=== PATIENT | male | born 1975 | race Caucasian/White ===

== ENCOUNTER 2024-01-15 07:09 | Emergency (ER) | payer MEDICAID, SELFPAY ==
--- NOTE | 2024-01-15 07:13 | ECG_ITS ---
Test Date: 2024-01-15 07:19:15 Measurements Intervals [place] Rate: 117 P: 62 NE: 138 QRS: 57 QRSD: 89 T: 36 QT: 333 QTc: 466 Interpretive Statements SINUS TACHYCARDIA INCOMPLETE RIGHT BUNDLE BRANCH BLOCK No previous ECG available for comparison Electronically Signed On 01-15-2024 12:10:09 CDT by Jose Díaz M.D.
[2024-01-15 07:14] VITALS: PULSE 126; RESP 26; TEMP 37.6; O2SAT 100
--- NOTE | 2024-01-15 07:30 | PC.NURSE ---
Patient refusing blood pressures and lab work.
--- NOTE | 2024-01-15 07:32 | ED.CHESTPAIN ---
HPI - Chest Pain General Chief Complaint: Chest Pain Stated Complaint: CHEST PAIN, AMS History of Present Illness HPI narrative: 48-year-old male presents emergency department for evaluation for chest pain. Patient was initially in police custody when he began complaining of chest pain and was transfer the emergency department by EMS. Upon arrival emergency department patient states he is not having chest pain but is concerned he is being poisoned. Patient denies any homicidal or suicidal knee. Patient is declining any labs. Related Data Allergies Allergy/AdvReac Type Severity Reaction Status Date / Time haloperidol [From Haldol] AdvReac Muscle Verified 01/15/24 07:29 Spasms ziprasidone [From Geodon] AdvReac Unknown Verified 01/15/24 07:29 Review of Systems Review of Systems: All systems reviewed & are unremarkable except as noted in HPI and below Exam Narrative: APPEARANCE: Agitated HEAD: normocephalic, atraumatic. EYES: PERRLA/EOMI, conjunctivae clear. NOSE: Normal no drainage EARS:TMS clear with good light reflex. THROAT: Pharynx clear, no exudate. NECK: Supple. No adenopathy, no masses. RESPIRATORY: Airway patent, respirations nonlabored. Clear to auscultation bilaterally, no rales, rhonchi, wheezing. CARDIOVASCULAR: Regular rate and rhythm without murmurs rubs or gallops. ABDOMINAL: Soft, nontender, nondistended, normal bowel sounds MUSCULOSKELETAL: Moves all extremities. Strength/ROM intact, No edema, No calf tenderness. NEURO: Alert. Cranial nerves II through XII intact. Grossly intact SKIN: Warm, dry. Normal Color Course Course Emergency Course: Patient was alert oriented, patient was not homicidal or suicidal, patient declined any medical workup and preferred to be discharged Vital Signs Vital signs: Vital Signs Temperature 99.7 F H 01/15/24 07:14 Pulse Rate 126 H 01/15/24 07:14 Respiratory Rate 26 H 01/15/24 07:14 Pulse Oximetry 100 01/15/24 07:14 Oxygen Delivery Room Air 01/15/24 07:14 Temperature 99.7 F H 01/15/24 07:14 Pulse Rate 126 H 01/15/24 07:14 Respiratory Rate 26 H 01/15/24 07:14 Pulse Oximetry 100 01/15/24 07:14 Oxygen Delivery Room Air 01/15/24 07:20 MDM - Chest Pain MDM Narrative Medical decision making narrative: 48-year-old male presents emergency department for evaluation for suspected poisoning. Patient has declined any medical workup prefers to be discharged home. Discharge Plan Discharge Clinical Impression: Chest pain, Poisoning Patient Disposition: Left Against Medical Advice Condition: Stable Follow-up/Referrals: UNKNOWN,DOCTOR [Primary Care Provider] -
--- NOTE | 2024-01-15 07:44 | PC.NURSE ---
Patient denying all medical tx, patient signed AMA form. Awaiting ride in lobby.
== END 2024-01-15 07:41 | disposition left against medical advice (07) ==
LOC: ANHED 07:36
PROVIDERS: Emergency Provider Emergency Medicine
DX: T50.904A Poisoning by unspecified drugs, medicaments and biological substances, undetermined, initial encounter (principal); R07.9 Chest pain, unspecified; I45.10 Unspecified right bundle-branch block; R00.0 Tachycardia, unspecified
CPT/HCPCS: 93005; 99283

== ENCOUNTER 2024-02-01 03:42 | Emergency (ER) | payer MEDICAID, SELFPAY ==
[2024-02-01 03:46] VITALS: BP 139/80; PULSE 112; RESP 16; TEMP 37.1; O2SAT 98
[2024-02-01 04:11] LABS: Basophils Percent Auto 0.3 % (0.2-1.2); Eosinophils Absolute Auto 0.1 K/mm3 (0-0.3); Eosinophils Percent Auto 0.8 % (0-4.4); Hematocrit 41.2 % (42.0-52.0); Immature Granulocyte Absolute 0.03 K/mm3 (0.00-0.031); Immature Granulocyte Percent A 0.5 % (0-0.5); Lymphocytes Absolute Auto 2.05 K/mm3 (0.9-3.2); Lymphocytes Percent Auto 32.2 % (18.3-44.2); Mean Corpuscular Hemoglobin 30.8 pg (26-34); Mean Corpuscular Volume 90.7 fl (80-100); Mean Platelet Volume 8.6 fl (7.4-10.4); Monocytes Absolute Auto 0.7 K/mm3 (0.1-0.6); Monocytes Percent Auto 11.5 % (2.6-8.5); Neutrophils Absolute Auto 3.5 K/mm3 (1.3-6.7); Neutrophils Percent Auto 54.7 % (45.5-73.1); Platelet Count Result 231 k/mm3 (150-375); Red Blood Count 4.54 M/mm3 (4.6-6.20); Red Cell Distribution Width 13.4 % (11.5-14.5); White Blood Count 6.4 K/mm3 (4.5-10.0)
[2024-02-01 04:22] LABS: Alanine Aminotransferase 17 U/L (6-50); Albumin Level 4.5 g/dL (3.5-5.1); Alkaline Phosphatase 72 U/L (38-126); Anion Gap 7 mmol/L (4-12); Aspartate Amino Transferase 32 U/L (17-59); Bilirubin,Total 0.4 mg/dL (0.2-1.3); Blood Urea Nitrogen 18 mg/dL (9-20); Calcium 8.4 mg/dL (8.4-10.2); Carbon Dioxide 30 mmol/L (22-30); Chloride 102 mmol/L (98-107); Estimated CRCL calculation 73 ml/min; Estimated Glomerular Filt Rate > 60; Glucose 120 mg/dL (65-110); Sodium 139 mmol/L (137-145)
[2024-02-01 04:24] LABS: Appearance Urine Clear (Clear); Bacteria Urine None Seen /hpf; Bilirubin Urine Negative (Negative); Blood Urine Negative (Negative); Color Urine Yellow (Yellow); Glucose Urine UA Negative (Negative); Hyaline Casts Urine Present /lpf; Ketones Urine Trace mg/dL (Negative); Leukocyte Esterase Ur 1+ LEU/UL (Negative); Mucus Urine Present /lpf; Need Manual Microscopic Reviewed; Nitrate Urine Negative (Negative); Non Pathogenic Casts 0-2; Protein Urine Negative (Negative); RBC Urine 0-2 /hpf (0-2); Specific Grav Ur 1.017 (1.001-1.035); Squamous Epithelial Cell Urine None Seen /hpf (Few); WBC Urine 0-5 /hpf (0-3); pH Urine 5.5 (5.0-9.0)
[2024-02-01 04:27] LABS: Add Urine Microscopic? YES
[2024-02-01 04:28] LABS: Barbiturate Screen Urine Negative (Negative); Benzodiazepines Screen Urine Negative (Negative); Ethanol 120 mg/dL (<10)
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
[2024-02-01 04:43] LABS: Cannabinoid Screen Urine Positive (Negative); Cocaine Screen Urine Positive (Negative); Methadone Screen Urine Negative (Negative); Opiate Screen Urine Negative (Negative); Phencyclidine Screen Urine Negative (Negative)
[2024-02-01 04:48] LABS: Influenza A QL RT-PCR Negative (Negative); Influenza B QL RT-PCR Negative (Negative); RSV RNA, RT-PCR Negative (Negative); SARS-CoV-2 RNA PCR Negative (Negative)
[2024-02-01 04:58] LABS: Amphetamine Screen Urine Positive (Negative)
[2024-02-01 06:49] LABS: Ethanol 62 mg/dL (<10)
--- NOTE | 2024-02-01 06:52 | PC.NURSE ---
Per EDP Dr. Hardy patient is medically clear and CRISIS can be called.
[2024-02-01 07:22] VITALS: BP 136/87; PULSE 98; RESP 15; O2SAT 100
--- NOTE | 2024-02-01 07:38 | PC.NURSE ---
Meal tray ordered for pt
--- NOTE | 2024-02-01 08:49 | PC.NURSE ---
Crisis here to evaluate pt
--- NOTE | 2024-02-01 10:00 | PC.NURSE ---
Care coordination at bedside
--- NOTE | 2024-02-01 10:15 | PCCCNOTE ---
Received request for bus tokens. Pt homeless and did have the [facility] hotline phone number. He was also given the list of homeless shelters in the area with recommendation her consider [facility] in [place]. He was given 4 tokens as he wasn't sure where he would be going.
[2024-02-01 10:17] VITALS: BP 146/77; PULSE 95; RESP 15; TEMP 37; O2SAT 98
== END 2024-02-01 10:18 | disposition home or self-care (01) ==
PROVIDERS: Student in an Organized Health Care Education/Training Program; Emergency Provider Emergency Medicine; PCP Family Medicine
DX: Z04.6 Encounter for general psychiatric examination, requested by authority (principal); F10.90 Alcohol use, unspecified, uncomplicated; F12.90 Cannabis use, unspecified, uncomplicated; F14.90 Cocaine use, unspecified, uncomplicated; F15.90 Other stimulant use, unspecified, uncomplicated; Y90.6 Blood alcohol level of 120-199 mg/100 ml; Z11.52 Encounter for screening for COVID-19; F43.10 Post-traumatic stress disorder, unspecified
CPT/HCPCS: 36415; 80053; 80307; 81001; 84443; 85025; 87637; 99284

== ENCOUNTER 2024-03-22 01:57 | Observation (INO) | payer MEDICAID, SELFPAY ==
[2024-03-22] VITALS (46 sets, daily range): BP systolic 109–148; BP diastolic 66–100; PULSE 86–150; RESP 12–28; TEMP 36.3–36.7; O2SAT 91–100; BMI 28.5
--- NOTE | ~2024-03-22 | XR_ITS ---
EXAMINATION: XR hand RT min 3V DATE: 03/22/2024 02:54 INDICATION: Right hand swelling and pain. Injury. TECHNIQUE: 3 views of right hand were obtained. COMPARISON: None. FINDINGS: Alignment is normal. There is an old healed fracture of diaphysis of fifth metacarpal. Ther e is mild osteoarthritis of first interphalangeal joint. IMPRESSION: 1. No acute fracture. Reviewed, dictated and finalized at location A. IMPRESSION: 1. No acute fracture.
--- NOTE | ~2024-03-22 | CT_ITS ---
EXAMINATION: CT brain wo con DATE: 03/22/2024 02:44 INDICATION: Head injury. TECHNIQUE: Computed tomography (CT) of the head was performed without intravenous contrast. The mA wa s adjusted according to patient size. Iterative reconstruction technique was employed. The dose-lengt h product was 681.00 mGy-cm. COMPARISON: None FINDINGS: There is no intracranial hemorrhage, acute infarction, or abnormal intracranial mass lesion . The ventricles are normal in size. The paranasal sinuses are clear. The mastoid air cells are cj l. There is bilateral scalp soft tissue swelling. The orbits are normal. IMPRESSION: 1. Normal brain. Reviewed, dictated and finalized at location A. IMPRESSION: 1. Normal brain.
--- NOTE | ~2024-03-22 | XR_ITS ---
EXAMINATION: XR chest 1V DATE: 03/22/2024 02:54 INDICATION: Weakness. TECHNIQUE: A single frontal view of the chest was obtained. COMPARISON: None. FINDINGS: Calcified right lung nodules and calcified right hilar and mediastinal lymph nodes are cons istent with old granulomatous disease. No pleural effusion or pneumothorax. The heart size is normal. IMPRESSION: 1. No acute cardiopulmonary disease. Reviewed, dictated and finalized at location A.
--- NOTE | ~2024-03-22 | US_ITS ---
EXAMINATION: US soft tissue UE RT DATE: 03/23/2024 10:32 INDICATION: Right hand swelling. TECHNIQUE: Multiple grayscale and Doppler ultrasound images of the right hand were obtained. COMPARISON: None FINDINGS: There is subcutaneous edema in the dorsum of the right hand. IMPRESSION: 1. Subcutaneous edema in the dorsum of the right hand. Reviewed, dictated and finalized at location A.
--- NOTE | 2024-03-22 02:07 | ECG_ITS ---
Test Date: 2024-03-22 02:10:11 Measurements Intervals [place] Rate: 136 P: 60 MD: 130 QRS: 75 QRSD: 89 T: 49 QT: 311 QTc: 468 Interpretive Statements SINUS TACHYCARDIA Compared to ECG 01/15/2024 07:19:15 SINUS TACHYCARDIA NOW PRESENT Electronically Signed On 03-22-2024 10:36:22 CDT by Jose Díaz M.D.
--- NOTE | 2024-03-22 02:30 | PC.NURSE ---
2 L bolus of NS started at this time. Pt has 20 g IV in the left wrist.
[2024-03-22 02:39] LABS: Basophils Percent Auto 0.2 % (0.2-1.2); Eosinophils Percent Auto 0.2 % (0-4.4); Hematocrit 37.9 % (42.0-52.0); Immature Granulocyte Absolute 0.05 K/mm3 (0.00-0.031); Immature Granulocyte Percent A 0.5 % (0-0.5); Immature Platelet Fraction Pct 4.1 % (0.9-11.2); Lymphocytes Absolute Auto 0.44 K/mm3 (0.9-3.2); Lymphocytes Percent Auto 4.5 % (18.3-44.2); Mean Corpuscular HGB Conc 34.3 g/dl (32-36); Mean Corpuscular Hemoglobin 31.9 pg (26-34); Mean Corpuscular Volume 92.9 fl (80-100); Mean Platelet Volume 9.3 fl (7.4-10.4); Monocytes Absolute Auto 0.7 K/mm3 (0.1-0.6); Monocytes Percent Auto 7.5 % (2.6-8.5); Neutrophils Absolute Auto 8.5 K/mm3 (1.3-6.7); Neutrophils Percent Auto 87.1 % (45.5-73.1); Platelet Count Result 102 k/mm3 (150-375); Red Blood Count 4.08 M/mm3 (4.6-6.20); Red Cell Distribution Width 14.6 % (11.5-14.5); White Blood Count 9.8 K/mm3 (4.5-10.0)
[2024-03-22 02:46] LABS: Acetaminophen < 10 ug/mL (10-30); Salicylate < 1.0 mg/dL (2-20)
[2024-03-22 02:50] LABS: Ethanol 26 mg/dL (<10)
[2024-03-22 02:54] LABS: Alanine Aminotransferase 43 U/L (6-50); Albumin Level 4.9 g/dL (3.5-5.1); Alkaline Phosphatase 70 U/L (38-126); Anion Gap 19 mmol/L (4-12); Aspartate Amino Transferase 99 U/L (17-59); Bilirubin,Total 0.5 mg/dL (0.2-1.3); Blood Urea Nitrogen 15 mg/dL (9-20); Calcium 8.8 mg/dL (8.4-10.2); Carbon Dioxide 17 mmol/L (22-30); Chloride 100 mmol/L (98-107); Estimated CRCL calculation 67 ml/min; Estimated Glomerular Filt Rate > 60; Glucose 90 mg/dL (65-110); Potassium 3.2 mmol/L (3.4-5.0); Sodium 136 mmol/L (137-145)
[2024-03-22 02:57] LABS: Barbiturate Screen Urine Negative (Negative); Benzodiazepines Screen Urine Positive (Negative)
[2024-03-22 02:59] LABS: Add Urine Microscopic? YES; Appearance Urine Cloudy (Clear); Bacteria Urine None Seen /hpf; Bilirubin Urine Negative (Negative); Blood Urine Negative (Negative); Color Urine Dark Yellow (Yellow); Glucose Urine UA Negative (Negative); Ketones Urine Trace mg/dL (Negative); Leukocyte Esterase Ur Trace LEU/UL (Negative); Need Manual Microscopic Reviewed; Nitrate Urine Negative (Negative); Non Pathogenic Casts >20; Protein Urine 2+ mg/dL (Negative); RBC Urine 0-2 /hpf (0-2); Specific Grav Ur 1.028 (1.001-1.035); Squamous Epithelial Cell Urine Occasional /hpf (Few); pH Urine 5.5 (5.0-9.0)
[2024-03-22 03:01] LABS: Cannabinoid Screen Urine Positive (Negative); Cocaine Screen Urine Negative (Negative); Methadone Screen Urine Negative (Negative); Opiate Screen Urine Negative (Negative); Phencyclidine Screen Urine Negative (Negative)
[2024-03-22 03:09] LABS: Creatine Kinase 2014 U/L (55-170)
[2024-03-22 03:13] LABS: Influenza A QL RT-PCR Negative (Negative); Influenza B QL RT-PCR Negative (Negative); RSV RNA, RT-PCR Negative (Negative); SARS-CoV-2 RNA PCR Negative (Negative)
[2024-03-22 03:14] LABS: Amphetamine Screen Urine Positive (Negative)
[2024-03-22 03:51] LABS: Free T4 Free Thyroxine Reflex 0.78 ng/dL (0.78-2.19)
[2024-03-22 04:32] LABS: Total Triiodothyronine (T3) 1.38 NG/ML (0.97-1.69)
[2024-03-22] MEDS: SODIUM CHLORIDE 0.9% IV 1,000 ML 200 ML IV CONT ×4 (04:58→19:41)
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
[2024-03-22] MEDS: POTASSIUM CHLORIDE 20 MEQ PACKET (FOR LIQUID) 40 MEQ PO (12:03)
[2024-03-22] MEDS: ACETAMINOPHEN 325 MG TABLET 650 MG PO (12:04)
--- NOTE | 2024-03-22 12:10 | ADMGEN ---
This patient, Colin Bhatia, was admitted to IMU Room 231-01 on 03/22/24 at 0835. Patient/family oriented to hospital policies and general routines including ID bracelet, bed and alarms, visiting hours, pain management, procedures, bathroom and other care routines, personal items, smoking policy, room service/diet, and visiting hours. Information on how to activate the Rapid Response Team has been discussed. Patient/Family are encouraged to report perceived risks to care and to ask questions if they do not understand what they are told or what they should do.
[2024-03-22] MEDS: VANCOMYCIN 1,250 MG/NS 250 ML 1,250 MG/250 ML BAG 166.67 MG IVPB (17:57)
[2024-03-22] MEDS: ceFAZolin 1 GM/NS 50 ML 1 GM/50 ML BAG IVPB (23:17)
[2024-03-23] VITALS (13 sets, daily range): BP systolic 135–166; BP diastolic 74–98; PULSE 70–100; RESP 18–20; TEMP 36.4–37; O2SAT 97–100
[2024-03-23 00:21] LABS: Glucose Point of Care 149 mg/dl (65-105)
[2024-03-23] MEDS: ceFAZolin 1 GM/NS 50 ML 1 GM/50 ML BAG IVPB ×3 (06:08→22:27)
[2024-03-23] MEDS: SODIUM CHLORIDE 0.9% IV 1,000 ML 200 ML IV CONT ×2 (06:08→22:26)
[2024-03-23 07:05] LABS: Basophils Percent Auto 0.2 % (0.2-1.2); Eosinophils Absolute Auto 0.1 K/mm3 (0-0.3); Eosinophils Percent Auto 2.3 % (0-4.4); Hematocrit 35.7 % (42.0-52.0); Hemoglobin 11.4 g/dL (14.0-18.0); Immature Granulocyte Absolute 0.02 K/mm3 (0.00-0.031); Immature Granulocyte Percent A 0.3 % (0-0.5); Immature Platelet Fraction Pct 4.2 % (0.9-11.2); Lymphocytes Absolute Auto 1.47 K/mm3 (0.9-3.2); Lymphocytes Percent Auto 24.7 % (18.3-44.2); Mean Corpuscular HGB Conc 31.9 g/dl (32-36); Mean Corpuscular Hemoglobin 31.2 pg (26-34); Mean Corpuscular Volume 97.8 fl (80-100); Mean Platelet Volume 9.5 fl (7.4-10.4); Monocytes Absolute Auto 0.8 K/mm3 (0.1-0.6); Monocytes Percent Auto 12.9 % (2.6-8.5); Neutrophils Absolute Auto 3.6 K/mm3 (1.3-6.7); Neutrophils Percent Auto 59.6 % (45.5-73.1); Platelet Count Result 106 k/mm3 (150-375); Red Blood Count 3.65 M/mm3 (4.6-6.20); Red Cell Distribution Width 14.9 % (11.5-14.5)
[2024-03-23 07:18] LABS: Glucose Point of Care 136 mg/dl (65-105)
[2024-03-23 07:19] LABS: Alanine Aminotransferase 32 U/L (6-50); Albumin Level 3.5 g/dL (3.5-5.1); Alkaline Phosphatase 59 U/L (38-126); Anion Gap 8 mmol/L (4-12); Aspartate Amino Transferase 58 U/L (17-59); Bilirubin,Total 0.6 mg/dL (0.2-1.3); Blood Urea Nitrogen 10 mg/dL (9-20); Calcium 7.9 mg/dL (8.4-10.2); Carbon Dioxide 23 mmol/L (22-30); Chloride 103 mmol/L (98-107); Creatine Kinase 919 U/L (55-170); Estimated CRCL calculation 133 ml/min; Estimated Glomerular Filt Rate > 60; Glucose 102 mg/dL (65-110); Sodium 134 mmol/L (137-145)
--- NOTE | 2024-03-23 07:19 | PM.IMPN ---
Progress Note: A&P Assessment and Plan (1) Cellulitis: Code(s): L03.90 - Cellulitis, unspecified Status: Acute Assessment and Plan: Right hand swelling approximately one week, started as two small blisters on his hand/wrist region that then popped and had a clear fluid substance. He states that the hand continues to swell and has been increasingly warm to the touch. He also notes pain with movement and tingling/numbness to his fingers. Patient denies any present or history of drug injections. - afebrile, WBC remains WNL - antibiotics: vancomycin and cefazolin started on 03/22 - US: subcutaneous edema in the dorsum of the right hand. No abscess noted on the read. - Monitor vital signs, I&Os, neuro status and patient is a fall risk - Monitor serum electrolytes, CBC, cultures, WBC and temp curve (2) Rhabdomyolysis: Code(s): M62.82 - Rhabdomyolysis Status: Acute Assessment and Plan: Likely secondary to patients drug use. - CK 2014 on admission, 919 on am labs - no kidney impairment noted on labs - IV fluid resuscitation: 200 ml/hr - monitor vitals signs, renal function - monitor electrolytes (3) Alcohol abuse: Code(s): F10.10 - Alcohol abuse, uncomplicated Status: Acute Assessment and Plan: Patient reports a fifth of bourbon intake since he was in his teens. He has history of seizures with withdrawal. Last drank 03/21 night. He is interested in alcohol cessation. - CIWA protocol. 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 He is interested in cessation. - Care coordination consulted for resources (5) Abnormal urinalysis: Code(s): R82.90 - Unspecified abnormal findings in urine Status: Acute Assessment and Plan: - UA:cloudy appearance, 2+ protein, trace ketones, trace leukocytes, 6-10 WBC, no bacteria - likely a contaminant given the squamous epithelial cells, no bacteria present and hes asymptomatic - UC obtained: negative - no previous micro to be reviewed - remains on cefepime for cellulitis Plan Diet: heart healthy DVT ppx: lovenox Code: Seismograph Observer Spent With Patient Time with patient: 25 - 35 minutes Subjective Date/time seen: 03/23/24 07:19 Interval history: 48 year old homeless male with past medical history of paranoid ideations and illicit drug use (methamphetamine, cocaine, cannabis, and benzos) presents to the hospital for paranoid ideations. Patient is pleasant lying comfortably in bed. He states that his hand is feeling slightly better today and is able to move it more. He continues to endorse tingling and numbness to the finger tips. He had a small blister develop along the medial scab that was no drainage. US without noted abscess. Patients CK continues to improve with fluids. No CIWA concerns. Review of Systems Review of Systems: All systems reviewed & are unremarkable except as noted in HPI and below Exam Narrative: AF HR 74 RR 20 SpO2 100 BP 148/92 General: male in no acute respiratory distress who is nontoxic appearing, lying semi recumbent in bed. HEENT: Normocephalic. Small horizontal laceration across his forehead, abrasions to the forehead and nose. No active bleeding. No facial asymmetry. Chest: Lungs are clear to auscultation bilaterally. No wheezes or crackles. CV: Heart was regular rate and rhythm. S1/S2. No murmurs, gallops, or rubs. Abd: Abdomen was soft. Nontender. Nondistended. Positive bowel sounds. No organomegaly or masses. Ext: No clubbing, cyanosis, or edema. 2+ DP pulses bilaterally. Pain with movement of the right hand. Neuro: Patient is alert and oriented x4. Cranial nerves 2-12 are intact. Speech is clear. Skin: Right hand with erythema,
[2024-03-23] MEDS: FOLIC ACID 1 MG TABLET PO (10:16)
[2024-03-23] MEDS: THIAMINE HCL 200 MG/2 ML VIAL 100 MG IV PUSH (10:16)
[2024-03-23] MEDS: MULTIVITAMINS THERAPEUTIC TAB (*BKC) 1 TABLET PO (10:17)
[2024-03-23] MEDS: CYANOCOBALAMIN 500 MCG TABLET PO (10:17)
[2024-03-23] MEDS: VANCOMYCIN 1,250 MG/NS 250 ML 1,250 MG/250 ML BAG 166.67 MG IVPB (13:31)
[2024-03-23 23:59] LABS: Glucose Point of Care 113 mg/dl (65-105)
[2024-03-24] VITALS (10 sets, daily range): BP systolic 150–167; BP diastolic 95–100; PULSE 76–94; RESP 16–20; TEMP 36.6–37; O2SAT 98–100
[2024-03-24] MEDS: ACETAMINOPHEN 325 MG TABLET 650 MG PO ×2 (03:03→13:15)
[2024-03-24] MEDS: VANCOMYCIN 1,250 MG/NS 250 ML 1,250 MG/250 ML BAG 166.67 MG IVPB (03:03)
[2024-03-24 05:40] LABS: Basophils Percent Auto 0.3 % (0.2-1.2); Eosinophils Absolute Auto 0.1 K/mm3 (0-0.3); Eosinophils Percent Auto 1.6 % (0-4.4); Hematocrit 34.6 % (42.0-52.0); Hemoglobin 11.5 g/dL (14.0-18.0); Immature Granulocyte Absolute 0.02 K/mm3 (0.00-0.031); Immature Granulocyte Percent A 0.3 % (0-0.5); Lymphocytes Absolute Auto 1.39 K/mm3 (0.9-3.2); Lymphocytes Percent Auto 20.7 % (18.3-44.2); Mean Corpuscular HGB Conc 33.2 g/dl (32-36); Mean Corpuscular Hemoglobin 31.9 pg (26-34); Mean Corpuscular Volume 96.1 fl (80-100); Mean Platelet Volume 9.7 fl (7.4-10.4); Monocytes Absolute Auto 0.8 K/mm3 (0.1-0.6); Monocytes Percent Auto 12.2 % (2.6-8.5); Neutrophils Absolute Auto 4.4 K/mm3 (1.3-6.7); Neutrophils Percent Auto 64.9 % (45.5-73.1); Platelet Count Result 125 k/mm3 (150-375); Red Cell Distribution Width 14.6 % (11.5-14.5); White Blood Count 6.7 K/mm3 (4.5-10.0)
[2024-03-24] MEDS: SODIUM CHLORIDE 0.9% IV 1,000 ML 200 ML IV CONT ×4 (05:48→21:57)
[2024-03-24 05:53] LABS: Alanine Aminotransferase 28 U/L (6-50); Albumin Level 3.5 g/dL (3.5-5.1); Alkaline Phosphatase 56 U/L (38-126); Anion Gap 8 mmol/L (4-12); Aspartate Amino Transferase 42 U/L (17-59); Bilirubin,Total 0.3 mg/dL (0.2-1.3); Blood Urea Nitrogen 8 mg/dL (9-20); Calcium 8.4 mg/dL (8.4-10.2); Carbon Dioxide 25 mmol/L (22-30); Chloride 101 mmol/L (98-107); Estimated CRCL calculation 131 ml/min; Estimated Glomerular Filt Rate > 60; Glucose 106 mg/dL (65-110); Potassium 3.6 mmol/L (3.4-5.0); Sodium 134 mmol/L (137-145)
[2024-03-24] MEDS: ceFAZolin 1 GM/NS 50 ML 1 GM/50 ML BAG IVPB ×3 (06:29→22:14)
[2024-03-24 08:01] LABS: Creatine Kinase 560 U/L (55-170)
--- NOTE | 2024-03-24 08:39 | PM.IMPN ---
Progress Note: A&P Assessment and Plan (1) Cellulitis: Code(s): L03.90 - Cellulitis, unspecified Status: Acute Assessment and Plan: Right hand swelling approximately one week, started as two small blisters on his hand/wrist region that then popped and had a clear fluid substance. He states that the hand continues to swell and has been increasingly warm to the touch. He also notes pain with movement and tingling/numbness to his fingers. Patient denies any present or history of drug injections. - afebrile, WBC remains WNL - antibiotics: vancomycin and cefazolin started on 03/22 - US: subcutaneous edema in the dorsum of the right hand. No abscess noted on the read. - Monitor vital signs, I&Os, neuro status and patient is a fall risk - Monitor serum electrolytes, CBC, cultures, WBC and temp curve (2) Rhabdomyolysis: Code(s): M62.82 - Rhabdomyolysis Status: Acute Assessment and Plan: Likely secondary to patients drug use. - CK 2014 on admission, 560 on am labs - no kidney impairment noted on labs - IV fluid resuscitation: 200 ml/hr - monitor vitals signs, renal function - monitor electrolytes (3) Alcohol abuse: Code(s): F10.10 - Alcohol abuse, uncomplicated Status: Acute Assessment and Plan: Patient reports a fifth of bourbon intake since he was in his teens. He has history of seizures with withdrawal. Last drank 03/21 night. He is interested in alcohol cessation. - CIWA protocol. 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 He is interested in cessation. - Care coordination consulted for resources (5) Abnormal urinalysis: Code(s): R82.90 - Unspecified abnormal findings in urine Status: Acute Assessment and Plan: - UA:cloudy appearance, 2+ protein, trace ketones, trace leukocytes, 6-10 WBC, no bacteria - likely a contaminant given the squamous epithelial cells, no bacteria present and hes asymptomatic - UC obtained: negative - no previous micro to be reviewed - remains on cefepime for cellulitis Plan Diet: heart healthy DVT ppx: lovenox Code: Prototype Machinist Spent With Patient Time with patient: 25 - 35 minutes Subjective Date/time seen: 03/24/24 08:39 Interval history: 48 year old homeless male with past medical history of paranoid ideations and illicit drug use (methamphetamine, cocaine, cannabis, and benzos) presents to the hospital for paranoid ideations. Patient is pleasant lying comfortably in bed. He states his hand has much improved. He still endorses pain with movement of the digits but notes this has improved since yesterday. Patient remains afebrile at this time. Patient denies chest pain, shortness of breath, nausea/vomiting and changes in bowel/bladder. His CK remains slightly elevated on am labs. He remains on IV fluids at this time. The muscle aches/pain has improved. Review of Systems Review of Systems: All systems reviewed & are unremarkable except as noted in HPI and below Exam Narrative: AF HR 86 RR 18 Spo2 99 BP 150/97 General: male in no acute respiratory distress who is nontoxic appearing, lying semi recumbent in bed. HEENT: Normocephalic. Small horizontal laceration across his forehead, abrasions to the forehead and nose. No active bleeding. No facial asymmetry. Chest: Lungs are clear to auscultation bilaterally. No wheezes or crackles. CV: Heart was regular rate and rhythm. S1/S2. No murmurs, gallops, or rubs. Abd: Abdomen was soft. Nontender. Nondistended. No organomegaly or masses. Ext: Pain with movement of the right hand. Neuro: Patient is alert and oriented x4. Cranial nerves 2-12 are intact. Speech is clear. Skin: Right hand with erythema, improving carolann
[2024-03-24] MEDS: ENOXAPARIN 40 MG/0.4 ML SYRINGE SUB-Q (09:45)
[2024-03-24] MEDS: MULTIVITAMINS THERAPEUTIC TAB (*BKC) 1 TABLET PO (09:46)
[2024-03-24] MEDS: CYANOCOBALAMIN 500 MCG TABLET PO (09:46)
[2024-03-24] MEDS: THIAMINE HCL 200 MG/2 ML VIAL 100 MG IV PUSH (09:46)
[2024-03-24] MEDS: FOLIC ACID 1 MG TABLET PO (09:46)
[2024-03-24 12:13] LABS: Glucose Point of Care 102 mg/dl (65-105)
--- NOTE | 2024-03-24 14:33 | PC.NURSE ---
pt to moved to room 342 via wheelchair once room ready; report given to diana landin- belongings with pt
--- NOTE | 2024-03-24 15:02 | PC.NURSE ---
transferred to room 342
--- NOTE | 2024-03-24 16:24 | PC.NURSE ---
This patient, Colin Bhatia, was received from IMU on 03/24/24 at 1502. Patient/family oriented to unit policies and routines
[2024-03-24 18:26] LABS: Glucose Point of Care 150 mg/dl (65-105)
[2024-03-24 21:47] LABS: Vancomycin Trough < 5.0 ug/mL (10.0-20.0)
[2024-03-24] MEDS: VANCOMYCIN 1,500 MG/NS 500 ML 1,500 MG/500 ML BAG 125 MG IVPB (22:57)
[2024-03-24 23:34] LABS: Glucose Point of Care 136 mg/dl (65-105)
[2024-03-25] VITALS: BP 167/97; PULSE 88
[2024-03-25 04:00] VITALS: BP 167/97; PULSE 69
[2024-03-25 04:44] VITALS: BP 160/82; PULSE 80; RESP 18; TEMP 36.6; O2SAT 96
[2024-03-25] MEDS: ceFAZolin 1 GM/NS 50 ML 1 GM/50 ML BAG IVPB (06:10)
[2024-03-25] MEDS: CYANOCOBALAMIN 500 MCG TABLET PO (08:25)
[2024-03-25] MEDS: FOLIC ACID 1 MG TABLET PO (08:25)
[2024-03-25] MEDS: THIAMINE HCL 200 MG/2 ML VIAL 100 MG IV PUSH (08:25)
[2024-03-25] MEDS: MULTIVITAMINS THERAPEUTIC TAB (*BKC) 1 TABLET PO (08:25)
[2024-03-25] MEDS: SULFAMETHOXAZOLE/TRIMETHOPRIM 800/160 MG DS TABLET 1 TAB PO (12:09)
--- NOTE | 2024-03-25 13:11 | PM.DS ---
DS: Admitting Diagnosis Discharge Date 03/25/2024 Admitting Diagnosis Cellulitis Rhabdomyolysis Alcohol abuse Amphetamine abuse Abnormal urinalysis DS: Discharge Diagnosis Discharge Diagnosis (1) Cellulitis: Code(s): L03.90 - Cellulitis, unspecified Status: Acute (2) Rhabdomyolysis: Code(s): M62.82 - Rhabdomyolysis Status: Acute (3) Alcohol abuse: Code(s): F10.10 - Alcohol abuse, uncomplicated Status: Acute (4) Amphetamine abuse: Code(s): F15.10 - Other stimulant abuse, uncomplicated Status: Acute (5) Abnormal urinalysis: Code(s): R82.90 - Unspecified abnormal findings in urine Status: Acute DS: Summary Hospital Course Reason for hospitalization: Cellulitis Rhabdomyolysis Alcohol abuse Amphetamine abuse Abnormal urinalysis Hospital Course: 48 year old homeless male with past medical history of paranoid ideations and illicit drug use (methamphetamine, cocaine, cannabis, and benzos) presents to the hospital for paranoid ideations that was likely drug induced psychosis given that patient had UDS postive for amphetamines and cannabinoids on admission. Benzos were likely from the haldol and versed patient received from EMS as reported in the HPI. Labs were concerning for rhabdomyolysis with a CK of 2014 initially. He was started on IV fluids and this continued to down trend. Patient also had right hand swelling concerning for cellulitis and was started on IV antibiotics. An XR was negative for fracture and US ruled out abscess formation. Patient was transitioned to oral antibiotics at discharge. Discussed in depth the importance of completing the antibiotics with the patient and he states understanding. Patient is also noted to be an alcoholic. During admission his CIWA scores required no intervention. Resources were given by care coordination for drug and alcohol cessation as well as shelters as patient is homeless. Prior to discharge patient denied any pain to the right hand, chest pain, shortness of breath, nausea/vomiting and abdominal pain. Patient discharged in stable condition. He is to complete his antibiotics as discussed. Status at Discharge Functional status at discharge: independent ambulation Time Spent with Patient Time attestation: Total time spent providing and/or coordinating discharge services: Exam Narrative: AF HR 80 RR 18 SPO2 96 BP 160/82 General: male in no acute respiratory distress who is nontoxic appearing, lying semi recumbent in bed. HEENT: Normocephalic. Small horizontal laceration across his forehead, abrasions to the forehead and nose. No active bleeding. No facial asymmetry. Chest: Lungs are clear to auscultation bilaterally. No wheezes or crackles. CV: Heart was regular rate and rhythm. S1/S2. No murmurs, gallops, or rubs. Neuro: Patient is alert and oriented x4. Cranial nerves 2-12 are intact. Speech is clear. Skin: Right hand with improved swelling, no redness or warmth. no tenderness with movement or palpation. scabs to the wrist. no discharge. DS: Data Data Completed and Pending Completed studies during hospitalization: soft tissue US Head CT chest xr hand xr Labs on day of discharge: Labs from last 24 hours 03/24/24 03/24/24 03/24/24 23:28 21:05 18:22 POC Capillary Glucose 136 H 150 H Vancomycin Trough < 5.0 L Discharge Plan Discharge Attending physician on discharge: Flavio Griffith Discharging Clinician: Mayuri Cooper Anticipated Discharge Date/Time: 03/25/24 13:04 Patient Disposition: Home, Self-Care Activity: as tolerated Diet: as tolerated Discharge Instructions: Discharge disposition: Take medications as prescribed Complete your full course of antibiotics. The script has been printed and Good Rx paperwork given. Continue meth and alcohol cessation Take B12, folate, multivitamin and thiamine when able to over the counter Follow up with the rehab center,
== END 2024-03-25 13:25 | disposition home or self-care (01) ==
LOC: ANHED 05:16 → ANHIMU 13:03 → ANH3MED 03-25 13:11 → ANHIMU 03-26 08:03
PROVIDERS: Student in an Organized Health Care Education/Training Program; Admitting Provider Internal Medicine; Emergency Provider Emergency Medicine; PCP Family Medicine; Visit Provider Family Medicine
DX: L03.113 Cellulitis of right upper limb (principal); M62.82 Rhabdomyolysis; R82.90 Unspecified abnormal findings in urine; F10.10 Alcohol abuse, uncomplicated; F15.10 Other stimulant abuse, uncomplicated; S01.81XA Laceration without foreign body of other part of head, initial encounter; W22.8XXA Striking against or struck by other objects, initial encounter; F17.210 Nicotine dependence, cigarettes, uncomplicated; F12.90 Cannabis use, unspecified, uncomplicated; Z59.02 Unsheltered homelessness; Z20.822 Contact with and (suspected) exposure to COVID-19
CPT/HCPCS: 12013; 36415; 70450; 71045; 73130; 76882; 80053; 80202; 80307; 81001; 82550; 82948; 84439; 84443; 84480; 85025; 85055; 87086; 87637; 93005; 96361; 96365; 96366; 96367; 96372; 96375; 99285; A9270; G0378; J0690; J1650; J3370; J3411; J7030

== ENCOUNTER 2024-07-05 01:23 | Emergency (ER) | payer MEDICAID, SELFPAY ==
[2024-07-05 01:56] VITALS: RESP 20
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
== END 2024-07-05 02:09 | disposition left against medical advice (07) ==
LOC: ANHED 02:49
PROVIDERS: PCP Family Medicine
DX: Z53.21 Procedure and treatment not carried out due to patient leaving prior to being seen by health care provider (principal)
CPT/HCPCS: 99199

== ENCOUNTER 2024-09-10 01:41 | Emergency (ER) | payer MEDICAID, SELFPAY ==
--- NOTE | ~2024-09-10 | XR_ITS ---
Left Hand Technique: PA and lateral views were obtained. Clinical History: Trauma Findings: No acute fracture or dislocation is seen. Osseous alignment is anatomic. Joint spaces are p reserved. Soft tissues are unremarkable. Impression: Unremarkable left hand. Reviewed, dictated and finalized at location M. OWGRAPH SCALE OPERATOR Impression: Unremarkable left hand.
--- NOTE | ~2024-09-10 | XR_ITS ---
Right Hand Technique: PA and lateral views were obtained. Clinical History: Trauma Findings: No acute fracture or dislocation is seen. Osseous alignment is anatomic. Joint spaces are p reserved. Soft tissues are unremarkable. Impression: Unremarkable right hand. Reviewed, dictated and finalized at location M. S DEVELOPER Impression: Unremarkable right hand.
--- NOTE | 2024-09-10 01:42 | ECG_ITS ---
Test Date: 2024-09-10 01:52:27 Measurements Intervals [place] Rate: 117 P: 74 HI: 132 QRS: 79 QRSD: 98 T: 59 QT: 326 QTc: 456 Interpretive Statements SINUS TACHYCARDIA POSSIBLE RIGHT VENTRICULAR CONDUCTION DELAY MINIMAL Q WAVES- INF/LAT LEADS ABNORMAL ECG Compared to ECG 03/22/2024 02:10:11 HEART RATE HAS DECREASED Electronically Signed On 09-10-2024 07:07:37 REPAIRER PUMP by Drake Alicea D.O.
[2024-09-10 01:43] VITALS: BP 108/74; PULSE 120; RESP 14; TEMP 36.6; O2SAT 100
--- OUTSIDE RECORDS SUMMARY | 2024-09-10 02:14 | XMS_ITS | CONTINUITY OF CARE DOCUMENT ---
Author Name abel roman Address Unknown Organization [facility] Address [address] [place] [address] Phone [phone] Care Team Providers Care Menswear Salesperson Name Role Phone Karl Borges MD Unavailable [phone] Karl Borges MD Unavailable [phone] INSURANCE PROVIDERS Payer name Policy type / Coverage type [place] red democrat [place] MED[place] (2) Medicaid [id number]
--- OUTSIDE RECORDS SUMMARY | 2024-09-10 02:14 | XMS_ITS | Clinical Summary ---
Author Organization [facility] Address [facility] [place] [address] Care Team Providers Care Television Schedule Coordinator Name Role Phone None, Provider MD Primary Care Provider Unavaila ble Allergies Active Allergy Reactions Criticality Noted Date Comments Haloperidol Other (see comment) 01/03/2024 Patient states his whole body locks up even with benadryl. Social History Tobacco Use Types Packs/Day Years Used Date Smoking Tobacco: Every Day Cigarettes Smokeless Tobacco: Current Snuff Tobacco Cessation:Ready to Q uit: Not Asked; Counseling Given: Not Answered Alcohol Use Standard Drinks/Week Comments Yes 0 (1 standard drink = 0.6 oz pure alcohol) patient states more than a fifth/day Sex and Gender Information Value Date Recorded Sex Assigned at Not on file Legal Sex Male 7:01 PM CDT Gender Identity Not on file Sexual Orientation Not on file Last Filed Vital Signs Vital Sign Reading Time Taken Comments Blood Pressure 165/105 01/03/2024 3:10 AM CDT Pulse 111 01/03/2024 3:10 AM CDT Temperature 36.8 C (98.3 F) 01/03/2024 3:10 AM CDT Respiratory Rate 18 01/03/2024 3:10 AM CDT Oxygen Saturation 100% 01/03/2024 3:10 AM CDT Inhaled Oxygen Concentration - - Weight 86.2 kg (190 lb) 01/03/2024 12:06 AM CDT Height 170.2 cm (5' 7 ) 01/03/2024 12:06 AM CDT Body Mass Index 29.76 01/03/2024 12:06 AM CDT Plan of Treatment Health Maintenance Due Date Last Done Comments Colorectal Cancer Screening Colonoscopy (10 Years) 1973 Annual Physical 1976 Pneumococcal Vaccine: Pediat rics (0 to 5 Years) and At-Risk Patients (6 to 64 Years) (1 of 2 - PCV) 10/26/1979 Hepatitis C 10/26/1991 DTaP, Tdap and Td Vaccines ( 1 - Tdap) 1992 Hepatitis B Vaccines (1 of 3 - 19+ 3-dose series) 1992 Zoster Vaccines (1 of 2) 10/26/2023 COVID-19 Vaccine (1 - 2023-2 5 season) 2024 Influenza Adult (#1) 2024 Meningococcal B Vaccine Aged Out No l onger eligible based on patient's age to complete this topic Meningococcal Vaccine Aged Out No senthil francine eligible based on patient's age to complete this topic RSV Immunizations Under 20 Months Aged Out No longer eligible based on patient's age to complete this topic Insurance MEDICAID Care Teams Television Schedule Coordinator Relationship Specialty Start Date End Date None, Provider, PCP - General UNKNOWN PHYSICIAN SPECIALTY 01/03/24
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
[2024-09-10] MEDS: ACETAMINOPHEN 500 MG TABLET 1000 MG PO (03:01)
[2024-09-10] MEDS: PRAZOSIN HCL 1 MG CAPSULE 2 MG PO (03:02)
[2024-09-10] MEDS: hydrOXYzine HCL 10 MG TABLET PO (03:02)
[2024-09-10] MEDS: SERTRALINE HCL 25 MG TABLET 75 MG PO (03:02)
[2024-09-10] MEDS: ALBUTEROL SULFATE NEB 2.5 MG/3 ML INH INHALATION (03:17)
[2024-09-10 03:21] VITALS: PULSE 104; RESP 16
[2024-09-10 03:26] VITALS: PULSE 104; RESP 16
[2024-09-10 03:32] LABS: Influenza A QL RT-PCR Negative (Negative); Influenza B QL RT-PCR Negative (Negative); RSV RNA, RT-PCR Negative (Negative); SARS-CoV-2 RNA PCR Negative (Negative)
--- NOTE | 2024-09-10 04:28 | PC.NURSE ---
upon discharge pt became agitated and stated he was too tired to ambulate . This RN offered pt a wheelchair and pt continued to become more agitated. Pt refused to get out of stretcher. This RN stated to pt that PD would be called if he did not exit ER Pt stood up and began stroking his belt in a threatening manner. Pt was once again told by this RN that PD would be contacted if he did not exit the room. Pt then stated skank ass bitch I have a 130 IQ . Pt then got dressed and was escorted out of ED by security.
== END 2024-09-10 06:18 | disposition home or self-care (01) ==
PROVIDERS: Emergency Provider Student in an Organized Health Care Education/Training Program; PCP Family Medicine
DX: F41.0 Panic disorder [episodic paroxysmal anxiety] (principal); S60.512A Abrasion of left hand, initial encounter; S60.511A Abrasion of right hand, initial encounter; R05.9 Cough, unspecified; R06.2 Wheezing; F17.210 Nicotine dependence, cigarettes, uncomplicated; Z76.0 Encounter for issue of repeat prescription; Z87.2 Personal history of diseases of the skin and subcutaneous tissue; Z20.822 Contact with and (suspected) exposure to COVID-19; Y04.0XXA Assault by unarmed brawl or fight, initial encounter
CPT/HCPCS: 73120; 87637; 93005; 94640; 96372; 99284; A9270